=== PATIENT | female | born 1990 | race Caucasian/White ===

== ENCOUNTER → 2021-03-04 | Outpatient (CLI) | payer BC, OTHER ==
[~2021-03-04] MED LIST: APAP500; DERMOPLAST SPRA56 ML; HYDROCORTISONE30 G9; IBUPROFEN 600600 M1 PO; KEFLEX500 MG PO; LANOLIN56 GM; MACROBID 100 M100 M1 PO; NORCO 5-325 TA1 EACH PO; PHENAZOPYRIDIN200 M2 PO; PRENATAL; TUCKS MEDICATE1 EAC1
== END ==
LOC: SJCVCIMAG 08:32
PROVIDERS: ATTEND Internal Medicine Cardiovascular Disease
DX: R07.9 Chest pain, unspecified (principal); R06.00 Dyspnea, unspecified; I10 Essential (primary) hypertension; F17.210 Nicotine dependence, cigarettes, uncomplicated; E78.1 Pure hyperglyceridemia; Z88.0 Allergy status to penicillin; Z72.89 Other problems related to lifestyle; Z79.899 Other long term (current) drug therapy